=== PATIENT | male | born 1975 | race Two or more races ===

== ENCOUNTER 2018-09-08 09:25 | Outpatient (CLI) | payer OTHER | END 2018-09-08 14:48 | disposition home or self-care (01) | LOC: SONOGRAMA 09:25 → MAMO-SONO 09:45 → SONOGRAMA 14:48 | DX: N43.2 Other hydrocele (principal) ==

== ENCOUNTER → 2018-11-24 | Day surgery (SDC) | payer OTHER | END | disposition home or self-care (01) | LOC: ADM 11-22 10:45 → CIR.AMB 07:00 | DX: N43.2 Other hydrocele (principal) ==

== ENCOUNTER 2018-12-08 09:03 | Outpatient (CLI) | payer OTHER | END 2018-12-08 09:13 | disposition home or self-care (01) | LOC: SONOGRAMA 09:03 | DX: R31.29 Other microscopic hematuria (principal) ==

== ENCOUNTER 2021-07-17 14:20 | Outpatient (CLI) | payer OTHER | END 2021-07-17 14:35 | disposition home or self-care (01) | LOC: RAD 14:20 | PROVIDERS: ATTEND General Practice | DX: M25.552 Pain in left hip (principal); M25.521 Pain in right elbow ==

== ENCOUNTER 2021-07-22 07:34 | Outpatient (CLI) | payer OTHER | END 2021-07-22 07:52 | disposition home or self-care (01) | LOC: MRI 07:34 | PROVIDERS: ATTEND General Practice | DX: M54.5 Low back pain (principal) | CPT/HCPCS: 72148 ==

== ENCOUNTER 2022-02-19 08:58 | Outpatient (CLI) | payer OTHER | END 2022-02-19 09:09 | disposition home or self-care (01) | LOC: SONOGRAMA 08:58 | PROVIDERS: ATTEND Chiropractor Sports Physician | DX: M25.612 Stiffness of left shoulder, not elsewhere classified (principal) ==

== ENCOUNTER 2022-06-11 08:09 | Outpatient (CLI) | payer OTHER | END 2022-06-11 08:23 | disposition home or self-care (01) | LOC: RAD 08:09 | PROVIDERS: ATTEND Family Medicine | DX: M54.9 Dorsalgia, unspecified (principal) ==

== ENCOUNTER 2023-05-04 15:15 | Outpatient (CLI) | payer OTHER | END 2023-05-04 15:25 | disposition home or self-care (01) | LOC: RAD 15:15 | PROVIDERS: ATTEND Family Medicine | DX: M54.2 Cervicalgia (principal); R07.9 Chest pain, unspecified ==

== ENCOUNTER → 2023-08-19 | Outpatient (CLI) | payer OTHER | END | disposition home or self-care (01) | LOC: TOM 08:57 | DX: M25.50 Pain in unspecified joint (principal); M25.549 Pain in joints of unspecified hand; R07.9 Chest pain, unspecified ==

== ENCOUNTER 2023-09-14 10:26 | Outpatient (CLI) | payer OTHER | END 2023-09-14 10:29 | disposition home or self-care (01) | LOC: SONOGRAMA 10:26 | PROVIDERS: ATTEND Pathology Anatomic Pathology & Clinical Pathology | DX: D36.0 Benign neoplasm of lymph nodes (principal) ==

== ENCOUNTER 2024-07-22 09:28 | Outpatient (CLI) | payer OTHER | END 2024-07-22 09:31 | disposition home or self-care (01) | LOC: SONOGRAMA 09:28 | PROVIDERS: ATTEND Urology | DX: N50.812 Left testicular pain (principal) ==

== ENCOUNTER 2025-07-05 09:14 | Outpatient (CLI) | payer OTHER | END 2025-07-05 09:23 | disposition home or self-care (01) | LOC: RAD 09:14 | PROVIDERS: ATTEND General Practice | DX: M25.561 Pain in right knee (principal); M25.562 Pain in left knee; M79.661 Pain in right lower leg ==